=== PATIENT | male | born 1980 | race Caucasian/White ===

== ENCOUNTER 2017-01-22 20:04 | Emergency (ER) | payer OTHER ==
[2017-01-22 20:31] VITALS: BP 159/89; PULSE 78; RESP 18; TEMP 97.9; O2SAT 97
--- NOTE | 2017-01-22 20:54 | UCPHY ---
H & P Patient Type: New Chief Complaint Nursing Narrative: Right ankle swelling Time Seen by Provider: 01/22/17 20:42 HPI/ROS: Chief complaint: Right ankle pain HPI: 36-year-old male who was his ankle playing basketball yesterday evening. Patient states that he hyperextended it. Patient has been walking on it with pain. This date is been swollen. No prior injuries. No numbness or tingling. No other injuries. ROS: 10 point Review of Systems is negative except as noted in the HPI. Past medical history: None Medications: None Allergies: None Social history: No smoking, occasional alcohol Physical exam: General: Awake, alert, no acute distress Right lower extremity: No hip pain, full range of motion without pain. Right knee: No pain, full range of motion without pain, no fibular head tenderness, right ankle. He has got significant swelling with ecchymosis. He has got take pain distal to the lateral malleolus. He has no medial malleolar tenderness. Foot: He has got tenderness in the proximal midfoot. Decreased range of motion secondary to pain. Cap refills less than 2 seconds. Sensations intact in all dermatomes. 2+ DP and PT pulses. - Medical/Surgical History Other PMH: denies - Family History Significant Family History: No pertinent family hx - Social History Smoking Status: Former smoker Constitutional: Initial Vital Signs Temperature (C) 36.6 C 01/22/17 20:29 Heart Rate 78 01/22/17 20:29 Respiratory Rate 18 01/22/17 20:29 Blood Pressure 159/89 H 01/22/17 20:29 O2 Sat (%) 97 01/22/17 20:29 O2 Delivery Mode Room Air Allergies/Adverse Reactions: No Known Allergies Allergy (Unverified 01/22/17 20:26) Home Medications: Medication Instructions Recorded NK [No Known Home Meds] 01/22/17 Medical Decision Making - Diagnostics Imaging Results: Imaging Impressions Foot X-Ray 01/22/17 20:47 Impression: Nothing acute. Right ankle x-ray negative for acute fracture per my interpretation. Right foot x-ray negative for acute fracture per my interpretation. Imaging: I viewed and interpreted images myself Departure - Departure Disposition: Home, Routine, Self-Care Clinical Impression: Ankle sprain Condition: Good Instructions: Ankle Sprain (ED), Crutch Instructions (ED), Ankle Stirrup Splint (ED) Additional Instructions: There are no obvious fractures on your initial x-rays. Occasionally these could be missed on early x-rays and if he continues symptoms you should be further evaluated. Follow up with Orthopedics in 4-5 days for re-evaluation. He may alternate ibuprofen with acetaminophen as needed for pain. Apply ice for 15 minutes for every hour for the next 2 days. Try to keep the extremity elevated as much as possible. Referrals: NONE *PRIMARY CARE P,. [Primary Care Provider] - As per Instructions Jose Carson MD [Medical Doctor] - As per Instructions - PQRS PQRS Measurement: NA
== END 2017-01-22 21:46 | disposition home or self-care (01) ==
LOC: CED 20:04
DX: S93.401A Sprain of unspecified ligament of right ankle, initial encounter (principal); Y93.67 Activity, basketball; X50.0XXA Overexertion from strenuous movement or load, initial encounter
CPT/HCPCS: 73610-PO; 73630-PO; 99203-PO; G0463-PO; L4350